=== PATIENT | male | born 1990 | race Caucasian/White ===

== ENCOUNTER 2019-11-20 21:30 | Emergency (ER) | payer MEDICAID, SELFPAY ==
[2019-11-20 21:31] VITALS: BP 142/95; PULSE 97; RESP 20; TEMP 36.3; O2SAT 97; BMI 25.1
--- NOTE | 2019-11-20 21:56 | ED.VIS.GEN ---
History of Present Illness Chief Complaint: Wound Informant: Patient Onset: Today Narrative: Patient here with mother concerns for sore inside left gums this evening. States more swollen earlier actually improving. Concerns for STD secondary to different partner recently. No sore throat no difficulty swallowing. History of seizure disorder, states no recent seizure activities. Prior similar symptoms: No Past Medical History - Allergies and Home Meds Allergies/Adverse Reactions: Allergies SHRIMP Allergy (Uncoded 04/10/16 16:21) Swelling Primary Care Physician: Curly Mtz MD [Primary Care Provider] - Past Medical History: - - Seizures Surgical History: herniorrhaphy Smoking Status: Current every day smoker Review of Systems General: Denies: Chills, Fever, Sweats Eyes: Denies: Visual changes - bilaterally, Diplopia ENT: Denies: Rhinorrhea, Sore throat Cardiovascular: Denies: Chest pain, Palpitations Respiratory: Denies: Dyspnea, Cough, Dyspnea on exertion Gastrointestinal: Denies: Abdominal pain, Nausea, Vomiting, Diarrhea, Melena, Hematochezia Genitourinary: Denies: Dysuria, Hematuria, Frequency Musculoskeletal: Denies: Back pain, Extremity Pain Skin: Denies: Rash, Wounds Neurological: Denies: Headache, Weakness, Numbness Physical Exam Vital Signs/Narrative: Vital Signs Temp Pulse Resp BP Pulse Ox 11/20/19 21:31 97.3 F L 97 20 H 142/95 H 97 General: Well nourished, Well developed, No Acute Distress Head: Normocephalic, Atraumatic Eyes: Perrl, EOMI ENT: Moist mucous membranes, No rhinorrhea, - - Left oral mucosa superiorly very small swelling region less than half centimeter there is no ulcers. Minimal tenderness. No dental tenderness. No sublingual edema. Airway patent. Neck: Supple, Nontender Cardiovascular: Regular rate, Regular rhythm, No murmurs Respiratory: No distress, CTA bilaterally, Chest nontender Abdomen: Soft, Nontender, Nondistended, Normal bowel sounds Back: Nontender, Normal Inspection Extremities: Nontender, No edema Skin: Normal color, No rash Neurological: Alert, Oriented x3, Cranial nerves II-XII grossly intact, Normal Strength, Normal Sensation Psychological: Normal affect, Normal Mood Diagnostic/Tx/Re-eval - Medical Decision Making Exam with small area with swelling minimal tenderness. There is no ulcers lesions concerns for canker sores or any STD concerns. He states is getting better. Discussed with patient I do not have a clear reason for his symptoms. However it is improving he can use Tylenol or Motrin. He is given follow-up with dental for additional oral exam if needed. ED Disposition - Plan for ED Patient: Disposition: Home or Assisted Living Diagnosis: Well adult health check Referrals: Curly Mtz MD [Primary Care Provider] - Additional Instructions: Monitor the symptoms, use Tylenol or Motrin as needed.
== END 2019-11-20 22:06 | disposition home or self-care (01) ==
LOC: ED 22:04
PROVIDERS: Emergency Provider Emergency Medicine; PCP Family Medicine
CPT/HCPCS: 99282

== ENCOUNTER 2019-12-08 22:11 | Emergency (ER) | payer MEDICAID, SELFPAY ==
[2019-12-08 22:12] VITALS: BP 161/111; PULSE 102; RESP 18; TEMP 36.2; O2SAT 100; BMI 26.2
--- NOTE | 2019-12-08 22:20 | ED.DCSUM_ITS ---
History of Present Illness Chief Complaint: Male Pain/Injury Narrative: Patient presents with 2 bumps on his scrotum. He has no penile pain no penile discharge no testicular pain. He has no fever or chills. He has no inguinal pain. Past Medical History - Allergies and Home Meds Allergies/Adverse Reactions: Allergies SHRIMP Allergy (Uncoded 04/10/16 16:21) Swelling Primary Care Physician: Curly Mtz MD [Primary Care Provider] - Past Medical History: None Surgical History: herniorrhaphy Smoking Status: Current every day smoker Review of Systems General: Denies: Fever Cardiovascular: Denies: Chest pain Respiratory: Denies: Dyspnea Gastrointestinal: Denies: Abdominal pain, Nausea Genitourinary: Reports: - - Scrotal lesion as in HPI. Denies: Dysuria, Hematuria Skin: Reports: - - As above Hematologic: Denies: Easy bruising Physical Exam Vital Signs/Narrative: Vital Signs Temp Pulse Resp BP Pulse Ox 12/08/19 22:12 97.2 F L 102 H 18 161/111 H 100 General: Well nourished, Well developed, No Acute Distress Cardiovascular: Regular rate Respiratory: No distress Abdomen: Soft, Nontender, Nondistended : - - Normal external genitalia. There is no penile discharge. There are 2 areas of folliculitis on his scrotum, no obvious fluctuance. No vesicles present. Diagnostic/Tx/Re-eval - Medical Decision Making This time patient does not manifest signs or symptoms of herpes since this is what he is concerned about however had a long discussion with him I warned him that he still could have contracted herpes they just have not manifested yet. Patient denies any discharge, he does not need any GC chlamydia testing he appears well I will discharge him in stable condition. I did educate him about safe sex practices ED Disposition - Plan for ED Patient: Disposition: Psych[facility] Hospital or Unit Diagnosis: Folliculitis Instructions: ED Folliculitis Prescriptions: Cephalexin [Keflex] 500 mg PO Q6 #28 cap Transmission Status: Pending to [id number] Referrals: Curly Mtz MD [Primary Care Provider] -
[2019-12-08 22:35] VITALS: BP 157/105
== END 2019-12-08 22:36 | disposition home or self-care (01) ==
PROVIDERS: Emergency Provider Emergency Medicine; PCP Family Medicine
DX: L73.9 Follicular disorder, unspecified (principal); F17.200 Nicotine dependence, unspecified, uncomplicated
CPT/HCPCS: 99281

== ENCOUNTER 2020-09-19 16:41 | Emergency (ER) | payer MEDICAID, SELFPAY ==
[2020-09-19 16:42] VITALS: BP 142/102; PULSE 88; RESP 16; TEMP 36.6; O2SAT 98; BMI 23.7
--- NOTE | 2020-09-19 16:58 | EDS_ITS ---
HPI History of Present Illness Chief Complaint: Male Pain/Injury Narrative Narrative: Patient presenting with concern for STD. He states he has had 2 sex partners in the last 2 months. The first 1 given trichomonas and he was treated for this. His second partner did not have any symptoms. He did have unprotected sex with her about a month and a half ago. He states he is not really having any drainage that is new but states that since he has had chlamydia earlier this year he has had continued mild drainage without urination. He denies dysuria or hematuria. He denies systemic signs or symptoms. Patient does have some small areas on his penis and testicles which he has questions about. He states that his testicles are nontender. He denies any rashes to the testicles or penis. [facility] Medical History Seizure Home Medications levetiracetam [Keppra] 1,500 mg PO BID 11/27/12 [History Last Taken 11/23/15] divalproex 750 mg PO BIDCM #180 tablet 05/06/13 [Rx Last Taken 11/23/15] Allergy/AdvReac Type Severity Reaction Status Date / Time SHRIMP Allergy Swelling Uncoded 09/19/20 16:41 Social History Smoking Status: Current every day smoker tobacco type: cigarettes ROS ROS ED Constitutional Constitutional ED: Denies chills, fever(s) or sweats Eyes Eyes: Denies blurry vision or change in vision ENT ENT ED: Denies ear pain or sore throat Cardiovascular Cardiovascular: Denies chest pain, palpitations or racing heartbeat Respiratory/Chest Respiratory/Chest: Denies cough, dyspnea or sputum Gastrointestinal Gastrointestinal: Denies abdominal pain, constipation, diarrhea, nausea or vomiting Genitourinary Genitourinary ED: Reports other Details: Bumps on testicles and penis ; Denies d ysuria, hematuria or urinary frequency Musculoskeletal Musculoskeletal: Denies arthralgias, myalgias or neck pain Integumentary Denies abscess, Abrasions or rash Neurologic Neurologic: Denies headache(s), paresthesias or weakness Psychiatric Psychiatric: Denies anxiety, depression, suicidal ideation or suicidal thoughts Endocrine Endocrinology: Denies polydipsia or polyuria EXAM Physical Exam Const Vital Signs: 09/19/20 16:42 Temperature 97.8 F Temperature Source Temporal Pulse Rate 88 Respiratory Rate 16 Blood Pressure 142/102 H Blood Pressure Mean 115 Pulse Ox 98 Oxygen Delivery Method Room Air Positive well nourished and unkempt General Appearance ED: unkempt; Negative for pallor HEENT normocephalic and atraumatic Eyes PERRL and EOMs intact bilaterally Resp normal respiratory effort Effort and Inspection: Negative for retractions Cardio regular rate and regular rhythm Penis: circumcised and papules; Negative for ecchymosis, edematous, erythema, mass, paraphimosis, phimosis, swelling, ulceration or discharge Scrotum: testes descended bilaterally and cremasteric reflex present; Negative for tenderness, erythema, ecchymosis, edematous, scrotal swelling or varicocele Neuro oriented x3 Sensorium / Orientation: alert Psych mental status grossly normal Appearance: unkempt Skin General Skin Exam: Negative for jaundice or pallor MDM MDM MDM Narrative Medical decision making narrative: Patient presenting with concern for STD although he states he had a chronic penile discharge for about 6 months. He has no new change in this. He has 2 unprotected sex partners in the last 2 months. He was recently treated for trichomonas and states that he had unprotected sex after this. This was about 1.5 months ago. He describes no dysuria or hematuria. He does not have testicular pain or penile pain. Patient does have some small white papules at the base of the penis and on the posterior scrotum there does not appear to be any other areas. And he is not connected. He did not appear to be tender. He did not appear to be genital warts and may just be small hair follicles. Patient will be tested for GC gonorrhea. Urinalysis was also sent. Urinalysis negative for infection. GC and gonorrhea are negative. Patient counseled on findings and he was discharged home in stable condition. Impression: 1. Urethritis noninfected Lab Data Labs: Laboratory Results - last 24 hr 09/19/20 09/19/20 17:05 17:05 Urine Color Yellow Urine Clarity Sl. Cloudy Urine pH 6.5 Ur Specific [place] 1.010 Urine Protein Negative Urine Glucose (UA) Normal Urine Ketones Negative Urine Occult Blood Negative Urine Nitrite Negative Urine Bilirubin Negative Urine Urobilinogen Normal Ur Leukocyte Esterase 25 H Urine RBC 0 SEEN Urine WBC 0-5 SEEN Ur Squamous Epith Cells 0-5 SEEN Urine Bacteria 0 SEEN Urine Mucus 0 SEEN Chlam trachomat DNA PCR Negative N.gonorrhoeae DNA (PCR) Negative Discharge Plan Triage Chief Complaint: Male Pain/Injury ED Provider: Anastacio Perry Dx/Rx/DC Orders Prescriptions: No Action levetiracetam [Keppra] 1,000 MG tablet 1,500 mg PO BID RF: 0 divalproex 250 MG tablet 750 mg PO BIDCM Qty: 180 RF: 0 Primary Care Provider: Curly Mtz Referrals: Curly Mtz MD [Primary Care Provider] - Disposition Disposition: Home, Self Care
[2020-09-19 17:12] LABS: Bacteria 0 SEEN /hpf (None Seen); Mucous, Urine 0 SEEN /hpf (<or=2+); Red Blood Cells-Urine 0 SEEN /hpf (0-5)
[2020-09-19 17:14] LABS: Color, Urine Yellow (Yellow); Glucose, Dipstick Normal (Normal); Ketone-Dipstick Negative (Negative); Leukocyte Esterase-Dipstick 25 /ul (Negative); Nitrite-Dipstick Negative (Negative); Occult Blood-Urine Negative /ul (Negative); Protein-Dipstick Negative (Negative); Urine Bilirubin Dipstick Negative (Negative); Urine Clarity Sl. Cloudy (Clear); Urine Urobilinogen Normal (Normal); Urine pH 6.5 (5.0 - 8.0)
[2020-09-19 17:26] LABS: Squamous Epithelial Cells - UA 0-5 SEEN /hpf (0-5)
[2020-09-19 17:27] LABS: White Blood Cells 0-5 SEEN /hpf (0-5)
[2020-09-19 19:27] LABS: Chlamydia Trachomatis by PCR Negative (Negative); Neisserai gonorrhoeae by PCR Negative (Negative); Probe Check PASS; Sample Adequacy Control PASS; Specimen Processing Control PASS
[2020-09-19 19:46] VITALS: BP 142/102; PULSE 88; RESP 16; O2SAT 98
== END 2020-09-19 19:45 | disposition home or self-care (01) ==
PROVIDERS: Emergency Provider Student in an Organized Health Care Education/Training Program; PCP Family Medicine
DX: N34.2 Other urethritis (principal); F17.210 Nicotine dependence, cigarettes, uncomplicated
CPT/HCPCS: 81001; 87491; 87591; 99282

== ENCOUNTER 2024-12-09 14:07 | Emergency (ER) | payer MEDICAID, SELFPAY ==
[2024-12-09 14:07] VITALS: BP 156/104; PULSE 93; RESP 16; TEMP 36.4; O2SAT 97; BMI 26.2
--- NOTE | 2024-12-09 14:35 | ED.RN ---
Patient's name called x2 by [employer]. Patient not in waiting room when this RN called name.
== END 2024-12-09 14:35 | disposition left against medical advice (07) ==
LOC: ED 14:55
PROVIDERS: PCP Family Medicine
DX: Z53.21 Procedure and treatment not carried out due to patient leaving prior to being seen by health care provider (principal)

== ENCOUNTER 2024-12-09 22:56 | Emergency (ER) | payer MEDICAID, SELFPAY ==
[2024-12-09 22:56] VITALS: BP 156/100; PULSE 110; RESP 19; TEMP 36.7; O2SAT 100; BMI 26.4
--- NOTE | 2024-12-09 23:27 | RAD_ITS ---
PROCEDURE: RIGHT KNEE 4 OR MORE VIEWS 12/09/2024 REASON FOR EXAM: PAIN TECHNIQUE: Procedure Code: RADKN Modality: DX Procedure: KNEE 4 OR MORE VIEWS Laterality: Right COMPARISON: None. FINDINGS: No acute fracture or dislocation. Alignment is anatomic. Preserved joint spaces. No aggressive osseous lesion. Prominent focal soft tissue swelling of the infrapatellar overlying the patellar tendon at the tibial tuberosity insertion. No unusual mineralization. No joint effusion. RAD/Knee 4 or More Views IMPRESSION: No acute fracture or dislocation. Localized soft tissue swelling in the infrap atellar soft tissues overlying the patellar tendon at the tibial tubercle insertion; nonspecific. Reading Location: [id number]
[2024-12-09] MEDS: Vancomycin HCl 1,250 MG in 0.9% Normal Saline (250mL Bag) 250 ML 167 MG IV (23:31)
[2024-12-09 23:32] LABS: Hematocrit 47.5 % (40-54); Hemoglobin 15.9 g/dL (13.0-16.5); Immature Granulocytes Count 0.070 X10^3/uL (0.0-0.0); Mean Corp Hgb Conc 33.5 g/dL (32-36); Mean Corpuscular Volume 98.5 fL (80-94); Mean Platelet Vol. 10.4 fl (6.2-12.0); NRBC Flagged by Analyzer 0 % (0-5); POSITIVE DIFFERENTIAL YES; Platelet Count 358 K/mm3 (150-450); RBC Distribution Width CV 12.0 % (11.6-14.6); RBC Distribution Width SD 43.9 fl (35.1-43.9); Red Blood Count 4.82 M/mm3 (4.6-6.2); White Blood Count 13.4 K/mm3 (4.4-11.0)
--- OUTSIDE RECORDS SUMMARY | 2024-12-09 23:49 | XMS RPT_ITS | CCD ---
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.Marcie DUMONT Unavailable CINTIA SINGH Attending Unavailable THEO REYNA Attending Unavailable THEO REYNA Referring Unavailable IRON MTZ Primary Care Unavailab IRON Escamilla Primary Care Unavailab [place] Allergies Allergy Classification Reported Allergen(s) Allergy Type Date of Onset Reaction(s) Facility (10 sources) Shellfish; Translations: [SHELLFISH DERIVED] Drug Allergy 5 Swelling [facility] Work Phone: (10 sources) traZODone; Translations: [TRAZODONE] Drug Allergy 5 Intolerance, Other: See Comments [facility] Work Phone: (1 source) Shrimp product Drug allergy (disorder) 2 [facility] Repository Medications Current Medications Medication Drug Class(es) Dates Sig (Normalized) Sig (Original) acetaminophen 325 mg oral tablet (1 source) Start: 11-24-2023 End: 12-09-2023 take 2 tablets by mouth every six hours as needed for pain acetaminophen (TYLENOL) 325 mg tablet Indications: Pain, dental Take 2 tablets by mouth every 6 hours as needed for pain for up to 15 days. 120 tablet 11/24/2023 12/09/2023 Active amoxicillin 875 mg / clavulanate 125 mg oral tablet (4 sources) Penicillin-class Antibacterial Start: 11-22-2023 take 1 tablet by mouth twice daily amoxicillin-clavul anate potassium (AUGMENTIN) 875-125 mg per tablet TAKE 1 TABLET BY MOUTH TWICE DAILY UNTIL GONE 11/22/2023 Active cholecalciferol 1.25 mg oral capsule (9 sources) Vitamin D Start: 02-27-2019 take 1 capsule by mouth every week cholecalciferol, Vitamin D3, (VITAMIN D3) 1,250 mcg (50,000 unit) cap capsule Indications: Vitamin D deficiency Take 1 capsule by mouth one time a week. 12 capsule 02/27/2019 Active Comment on above: Take 1 capsule by mo ut one time a week. ibuprofen 600 mg oral tablet (1 source) Nonsteroidal Anti-inflammatory Drug Start: 11-24-2023 End: 12-09-2023 take 1 tablet by mouth every six hours as needed for pain ibuprofen (MOTRIN) 600 mg tablet Indications: Pain, dental Take 1 tablet by mouth every 6 hours as needed for pain for up to 15 days. 60 tablet 11/24/2023 12/09/2023 Active levETIRAcetam 750 mg oral tablet (11 sources) Start: 11-18-2022 End: 09-04-2024 take 2 tablets by mouth twice daily levETIRAcetam (KEPPRA) 750 mg tablet Indications: Seizure disorder (HCC) Take 2 tablets by mouth two times a day. 360 tablet 1 03/08/2024 09/04/2024 Active Start: 08-05-2021 End: 03-23-2022 take 2 tablets by mouth twice daily levETIRAcetam (KEPPRA) 750 mg tablet Indications: Seizure disorder (HCC) Take 2 tablets by mouth twice daily. 360 tablet 0 12/23/2021 Active Comment on above: Take 2 tablets by mo ut twice daily Take 2 tablets by mo uth twice daily. divalproex sodium 250 mg delayed release oral tablet (9 sources) Mood Stabilizer, Anti-epileptic Agent Start: 11-18-2022 End: 09-04-2024 take 3 tablets by mouth twice daily divalproex DR (DEPAKOTE) 250 mg EC tablet Indications: Seizure disorder (HCC) Take 3 tablets by mouth two times a day. 540 tablet 1 03/08/2024 09/04/2024 Active Start: 12-11-2020 End: 04-26-2022 take 3 tablets by mouth twice daily divalproex DR (DEPAKOTE) 250 mg EC tablet Indications: Seizure disorder (HCC) Take 3 tablets by mouth twice daily. 540 tablet 0 01/26/2022 04/26/2022 Active Comment on above: Take 3 tablets by mo uth twice daily. TAKE 3 TABLETS BY MO UTH TWICE DAILY Problems Active Problems Problem Classification Problem Date Documented Da te Episodic/Chronic Anxiety disorders (9 sources) Anxiety; Translations: [Anxiety disorder, unspecified] Onset: 06-04-2014 06-04-2014 Chronic Disorders of teeth and jaw (1 source) Toothache; Translations: [Other specified disorders of teeth and supporting structures] 11-24-2023 Episodic Epilepsy; convulsions (13 sources) Seizure disorder; Translations: [Epilepsy, unspecified, not intractable, without status epilepticus] Onset: 06-04-2014 Chronic Genitourinary symptoms and ill-defined conditions (1 source) Other abnormal findings in urine; Translations: [Dark urine] Onset: 07-02-2024 Episodic Mood disorders (9 sources) Recurrent major depression; Translations: [Major depressive disorder, recurrent, unspecified] Onset: 06-22-2016 06-22-2016 Chronic Other aftercare (1 source) Patient encounter status; Translations: [Encounter for therapeutic drug level monitoring] 03-08-2024 Episodic Other male genital disorders (1 source) Other specified disorders of the male genital organs; Translations: [Lump in scrotum] Onset: 07-02-2024 Episodic Urinary tract infections (2 sources) Other urethritis; Translations: [Urinary tract infection, site not specified] Onset: 12-15-2021 Episodic Past or Other Problems Problem Classification Problem Date Documented Da te Episodic/Chronic Hemorrhoids (9 sources) Internal hemorrhoids; Translations: [Other hemorrhoids] Onset: 03-24-2012 03-24-2012 Episodic Residual codes; unclassified (9 sources) Insomnia; Translations: [Insomnia, unspecified] Onset: 08-04-2014 08-04-2014 Episodic Results Test Name Value Interpretation Reference Range Facil ity Bacteria Ur Culton Bacteria identified Cx Nom (U) CULTURE, URINE: No growth (<1,000 CFU/ml) Normal [facility] Comment on above: Performed By: #### 6 30-4 #### [facility] CLIA [id number] [address] [place] [address] C. trachomatis+N. gonorrhoea e DNA NIRU+probe Ql (Unsp spec)on 07-02-2024 C. trachomatis rRNA NIRU+probe Ql (Unsp spec) Not detected Normal Not detected [facility] Comment on above: Order Comment: Speci men Type: URINE SPECIMEN Ordering Facility: [facility] Address: [address] [place] [address] Performed By: #### 3 6902-5 #### [facility] CLIA [id number] [address] [place] [address] N. gonorrhoeae rRNA NIRU+probe Ql (Unsp spec) Not detected Normal Not detected [facility] Comment on above: Order Comment: Speci men Type: URINE SPECIMEN Ordering Facility: [facility] Address: [address] [place] [address] Performed By: #### 3 6902-5 #### [facility] CLIA [id number] [address] [place] [address] OF [facility] CNOVon 07-02-2024 CNOV Office Visit ([facility] ) HARPREET CHRISTIANSON ([id number]) 1990 M Date Time Provider Department 07/02/24 1:30 PM [facility]INTIA SINGH [facility] During your visit today, we recorded the following information about you: Temperature Pulse Respiration Blood pressure 97.6 degrees 91/minute 16/minute 132/82 Weight 89.4 kg Cintia Singh APRN.TIM 07/02/2024 2:12 PM Signed [facility] Subjective Harpreet Christianson is a 34 year old male. Patient presents with: lump on left testicle: Found it 4 days ago HPI Left Testicular Lump: - Noticed a lump on the left testicle. - Mild pain when the lump is bumped or pressed. - Occasional tingling sensation in the testicles. - Denies pain with urination, burning, or frequency. - Sexually active; recent history of multiple partners. - Denies any known STDs in partners. Review of Systems Constitutional: Negative for chills and fever. Genitourinary: Positive for scrotal swelling and testicular pain. Negative for decreased urine volume, difficulty urinating, dysuria, enuresis, flank pain, frequency, genital sores, hematuria, penile discharge, penile pain, penile swelling and urgency. Skin: Negative for color change and rash. Objective BP 132/82 Pulse 91 Temp 36.4 ?C (97.6 ?F) (Tympanic) Resp 16 Wt 89.4 kg (197 lb 1.5 oz) SpO2 99% BMI 28.28 kg/m? PAST MEDICAL HISTORY Diagnosis Date - Anxiety - Seizure (HCC) PAST SURGICAL HISTORY Procedure Laterality Date - EXTRACTION, ERUPTED TOOTH OR EXPOSED ROOT (ELEVATION AND/OR FORCEPS REMOVAL) - PAST SURGICAL HISTORY OF 1995 hernia repair ALLERGIES Shellfish Derived and Trazodone MEDICATIONS - divalproex DR (DEPAKOTE) 250 mg EC tablet Take 3 tablets by mouth two times a day. - levETIRAcetam (KEPPRA) 750 mg tablet Take 2 tablets by mouth two times a day. - nitrofurantoin monohydrate and macrocrystal (MACROBID) 100 mg capsule Take 1 capsule by mouth two times a day for 5 days. - amoxicillin-clavulanat e potassium (AUGMENTIN) 875-125 mg per tablet TAKE 1 TABLET BY MOUTH TWICE DAILY UNTIL GONE (Patient not taking: Reported on 07/02/2024) - cholecalciferol, Vitamin D3, (VITAMIN D3) 1,250 mcg (50,000 unit) cap capsule Take 1 capsule by mouth one time a week. (Patient not taking: Reported on 11/24/2023) FAMILY HISTORY Problem Relation Age of Onset - Hypertension Mother - Hypertension Father - other (kidney failure) Father - Diabetes Maternal Grandfather - Ischemic Heart Disease Maternal Grandfather - Cancer Maternal Grandmother - Ovarian cancer Maternal Grandmother - Cancer Paternal Grandfather - No Known Problems Paternal Grandmother - No Known Problems Half-brother - No Known Problems Half-brother Social History Tobacco Use - Smoking status: Every Day Current packs/day: 1.00 Average packs/day: 1 pack/day for 7.0 years (7.0 ttl pk-yrs) Types: Cigarettes - Smokeless tobacco: Never Vaping Use - Vaping status: Never Used Substance Use Topics - Alcohol use: Yes Alcohol/week: 4.0 standard drinks of alcohol Types: 4 Cans of Beer (12oz) per week Comment: 4 tall boy beers a night. - Drug use: No Comment: No drugs now marijuana in the past. Physical Exam Vitals and nursing note reviewed. Exam conducted with a lime supervisor present. Constitutional: General: He is not in acute distress. Appearance: Normal appearance. He is not ill-appearing. Genitourinary: Pubic Area: No rash. Testes: Left: Mass present. Tenderness not present. Neurological: Mental Status: He is alert. {1. Lump in scrotum (N50.89) - Palpable mass adjacent the left testicle, non-tender on examination. - Differential diagnosis includes lymphadenopathy. - Ordered scrotal ultrasound to evaluate the nature of the mass (e.g., fluid, cyst). - Educated patient on the function of lymph nodes and potential causes of swelling, including infections. - Discussed the possibility of sexually transmitted infections (STIs) contributing to lymph node swelling. - Ordered urine test for gonorrhea and chlamydia and trichomonas; results expected within one day. - Patient understands and agrees with the plan. 2. Dark urine (R82.998) 3. Urinary tract infection without hematuria, site unspecified (N39.0) - Urine test indicates signs of a urinary tract infection (UTI). Urine culture sent to lab. - Initiated antibiotic therapy; prescription sent to patient's pharmacy at [facility]. - Advised patient on the importance of adequate hydration to prevent UTIs. Office Visit on 07/02/2024 Component Date Value Ref Range Status - GLUCOSE UA (POCT) 07/02/2024 Negative Negative mg/dL Final - BILIRUBIN UA (POCT) 07/02/2024 Small (A) Negative Final - KETONE UA (POCT) 07/02/2024 Trace Negative mg/dL Final - SPECIFIC GRAVITY UA (POCT) 07/02/2024 1.020 1.005 - 1.030 Final - HEMOGLOBIN/BLOOD UA (POCT) (more content not included)... Normal [facility] TRICHOMONAS VAGINALIS NAATon 07-02-2024 T. vaginalis DNA NIRU+probe Ql (Unsp spec) Not detected Normal Not detected [facility] Comment on above: Order Comment: Speci men Type: URINE SPECIMEN Ordering Facility: [facility] Address: [address] [place] [address] Performed By: #### T RVAMP #### [facility] CLIA [id number] [address] [place] [address] OF [facility] CNPLucy 03-09-2024 CNPN Telephone ([facility]) HARPREET CHRISTIANSON ([id number]) 1990 M Date Time Provider Department 03/09/24 THEO REYNA [facility] During your visit today, we recorded the following information about you: Sondra Atkinson 03/09/2024 9:17 AM Signed 1st attempt to reach Harpreet about his six month follow up. I have scheduled him and sent a ActualMeds message with information if he needs a different date and time. Sondra Vargas 03/10/2024 7:45 AM Signed Rubin has received and read both ActualMeds messages with scheduling information. Sondra Atkinson Allergies As of Date: 03/09/2024 Noted Allergy Reaction SHELLFISH DERIVED 05/20/2014 7 - Swelling TRAZODONE 09/09/2014 5 - Intolerance 14 - Other: See Comments Comments: made him feel wierd Date Reviewed: 11/24/2023 Reviewed by: Samira Hauser MA - Fully Assessed Reason for Visit: Appointment [186] Prescriptions as of 03/10/2024 - divalproex DR (DEPAKOTE) 250 mg EC tablet Take 3 tablets by mouth two times a day. - levETIRAcetam (KEPPRA) 750 mg tablet Take 2 tablets by mouth two times a day. - amoxicillin-clavulanat e potassium (AUGMENTIN) 875-125 mg per tablet TAKE 1 TABLET BY MOUTH TWICE DAILY UNTIL GONE - cholecalciferol, Vitamin D3, (VITAMIN D3) 1,250 mcg (50,000 unit) cap capsule Take 1 capsule by mouth one time a week. Problem List As Of Date 03/09/2024 Noted Resolved Internal hemorrhoids without mention of complic*03/24/2012 Seizure disorder (HCC) [G40.909] 06/04/2014 Anxiety [F41.9] 06/04/2014 Insomnia [G47.00] 08/04/2014 Major depression, recurrent, chronic (HCC) [F33*06/22/2016 Encounter Status:Closed by SONDRA ATKINSON [facility] ([facility]) HARPREET CHRISTIANSON ([id number]) 1990 M Date Time Provider Department 01/08/24 THEO REYNA [facility] During your visit today, we recorded the following information about you: Latonia Merida 01/08/2024 2:16 PM Signed Patients mother called requesting a refill of the patients Keppra and Depakote. Please send to the [facility] pharmacy in [place]. Harpreet De Jesus 01/08/2024 7:[address] Reyna, please advise. Pt was last seen on 11/18/2022, but then had a No Show on 05/08/23 and then canceled his 05/22/23 apt. Theo Reyna MD 01/09/2024 11:57 AM Signed We went through this with him before his prior appointments. - Seen 05/2019 - 4 no shows then seen 11/2020 - 3 no shows and 1 cancellation then seen 11/2022. Refilled meds multiple times in intervening time to try to get him to an appointment that was then missed. Is there someone we can forward the chart to in order to send a certified letter that patient needs to be seen for appointments, ombudsman or patrol community service officer or something? I can give him a refill to get him to an appointment now, but I don't want to get into the cycle again of refilling to appointments he doesn't come to. Veronica Cespedes 01/09/2024 12:58 PM Signed Mother called back inquiring about the refills. I relayed Dr. Pavon message letting her know that a refill can be sent in to get him through his next appt but that it would be the last time due to his amount of cancellations and no shows. She conveyed understanding and he now has an appt. She is wondering if it can be done virtually or not. Please call Hanna at [phone] to let her know if the appt on Feb 27 can be virtual or does it have to be in person. Please advise Sondra Atkinson 01/10/2024 1:53 PM Signed Hanna called again, and asked if Harpreet could be seen virtually for his February appointment or if it must be in person. She also asked if his prescription refill that will last until his February appointment is going to be called in? She is concerned about this. She said they use [facility] pharmacy in [place]. Could someone advise her about the medication refill request? Clerical team can assist in adjusting appointment to virtual if this is agreeable with Dr. Reyna. Theo Anton MD 01/10/2024 2:44 PM Signed I sent 90 days to the pharmacy. I'm a little worried about the visit being virtual only because it adds another possible roadblock to the visit being successfully completed, but in theory there's no reason the visit has to be in person medically. If they are very comfortable with using zoom / doing virtuals then should be fine. I'm not sure if the chart got forwarded to someone to look at for sending a certified letter or what would need to be done before their visit so that we don't get into the cycle of not coming to visits and needing refills? I think that's still important to be done. Thanks Theo Reyna MD 01/10/2024 2:44 PM Signed Addended by: THEO REYNA on: 01/10/2024 02:44 PM Modules accepted: Tara Mccabe RN 01/10/2024 3:57 PM Addendum Placed call to patient's mother Hanna at [phone]. Notified her that refills were sent. Updated her phone number in the EMR to this number, as she confirmed her number had changed. She said that the patient does not have a phone number. Patient has not logged into ActualMeds since April 2022. His mother asked for a walkthrough to reset a password on his account and help her with the rosa they need to log in. Her questions were answered in a general sense but could not help with access issues for this patient account because she does not have proxy access and the patient would need to do that. Reiterated Dr. Reyna's message that unless the patient is very comfortable with logging in and utilizing the rosa then he should be seen in person and not virtually. She voiced understanding and said she would help the patient with resetting his password to log in but that I know Harpreet wanted a virtual visit. Confirmed patient's home address Harpreet Christianson [id number] [facility] [address] A request was sent for certified letter labels and a supply of those should be received by the office by the end of this week. Tara Coto RN 01/19/2024 9:36 AM Signed Letter written and placed in Theo Reyna MD inbox to review. Allergies As of Date: 01/08/2024 Noted Allergy Reaction SHELLFISH DERIVED 05/20/2014 7 - Swelling TRAZODONE 09/09/2014 5 - Intolerance 14 - Other: See Comments Comments: made him feel wierd Date Reviewed: 11/24/2023 Reviewed by: Samira Hauser MA - Fully Assessed Visit Diagnosis:Seizure disorder (HCC) [G40.909] Order(s):divalproex DR (DEPAKOTE) 250 mg EC tabletTake 3 tablets by mouth two times a day.Disp: 540 tabletRfl: 0 levETIRAcetam (KEPP (more content not included)... Normal [facility] CNOVon 11-24-2023 CNOV Office Visit ([facility]STR ) HARPREET CHRISTIANSON ([id number]) 1990 M Date Time Provider Department 11/24/23 7:45 AM PATEL HERNANDEZ [facility] During your visit today, we recorded the following information about you: Temperature Pulse Respiration Blood pressure 98.8 degrees 97/minute 18/minute 146/91 Weight 99.9 kg Patel Hernandez MD 11/24/2023 8:16 AM Signed Patient presents with: Dental Problem: L side tooth infection x1 month, currently on augmentin HPI: Dental pain: Duration: 1 month, went to dentist 2 days ago and felt better after starting antibiotic but feeling bad again over night Location: left upper molar, general headache Character: aching and throbbing Relieving: unable to sleep last night Pain relievers: had used ibuprofen but not currently, using salt water gargle for sore throat Associated: chills, nausea, sore throat, headache Pertinent negatives: Denies purulent drainage, cough, nasal congestion, rhinorrhea, vomiting, diarrhea MEDICATIONS: amoxicillin-clavulanat e potassium (AUGMENTIN) 875-125 mg per tablet TAKE 1 TABLET BY MOUTH TWICE DAILY UNTIL GONE divalproex DR (DEPAKOTE) 250 mg EC tablet Take 3 tablets by mouth two times a day. levETIRAcetam (KEPPRA) 750 mg tablet Take 2 tablets by mouth two times a day. cholecalciferol, Vitamin D3, (VITAMIN D3) 1,250 mcg (50,000 unit) cap capsule Take 1 capsule by mouth one time a week. (Patient not taking: Reported on 11/24/2023) ALLERGIES: ALLERGIES Allergen Reactions Shellfish Derived Swelling Trazodone Intolerance, Other: See Comments made him feel wierd VITALS: BP 146/91 Pulse 97 Temp 37.1 ?C (98.8 ?F) Resp 18 Wt 99.9 kg (220 lb 3.8 oz) SpO2 98% BMI 31.60 kg/m? PE: Gen: Mildly ill-appearing, holding left jaw and uncomfortable Eyes: PERRL, EOMI, sclera clear Ears: Canals clear. TMs without erythema, bulge, or effusion Sinuses: non-tender frontal, non-tender maxillary Mouth/throat: MMM, mild pharyngeal erythema without exudate, small right tonsil stone. Left upper 2nd molar 1/3 missing, 3rd molar absent Neck: Supple, no thyromegaly, nontender, no lymphadenopathy Heart: regular rate and rhythm, no murmurs Lungs: clear to auscultation ASSESSMENT/PLAN: 1. Pain, dental - ICD9: 525.9, ICD10: K08.89 Continue augmentin. Resume analgesia. Scheduled combination ibuprofen and acetaminophen every 6 hours at least 3 times a day. - IBUPROFEN 600 MG TABLET - ACETAMINOPHEN 325 MG TABLET Sore throat and headache may be related to acute viral illness. Streptococcal pharyngitis ruled out by present Augmentin use. Patel Hernandez MD Allergies As of Date: 11/24/2023 Noted Allergy Reaction SHELLFISH DERIVED 05/20/2014 7 - Swelling TRAZODONE 09/09/2014 5 - Intolerance 14 - Other: See Comments Comments: made him feel wierd Date Reviewed: 11/24/2023 Reviewed by: Samira Hauser MA - Fully Assessed Reason for Visit: Dental Problem [31] Cmt: L side tooth infection x1 month, currently on augmentin Primary Visit Diagnosis:Pain, dental [K08.89] Order(s):ibuprofen (MOTRIN) 600 mg tabletTake 1 tablet by mouth every 6 hours as needed for pain for up to 15 days.Disp: 60 tabletRfl: 0 acetaminophen (TYLENOL) 325 mg tabletTake 2 tablets by mouth every 6 hours as needed for pain for up to 15 days.Disp: 120 tabletRfl: 0 Prescriptions as of 11/24/2023 - amoxicillin-clavulanat e potassium (AUGMENTIN) 875-125 mg per tablet TAKE 1 TABLET BY MOUTH TWICE DAILY UNTIL GONE - ibuprofen (MOTRIN) 600 mg tablet Take 1 tablet by mouth every 6 hours as needed for pain for up to 15 days. - acetaminophen (TYLENOL) 325 mg tablet Take 2 tablets by mouth every 6 hours as needed for pain for up to 15 days. - divalproex DR (DEPAKOTE) 250 mg EC tablet Take 3 tablets by mouth two times a day. - levETIRAcetam (KEPPRA) 750 mg tablet Take 2 tablets by mouth two times a day. - cholecalciferol, Vitamin D3, (VITAMIN D3) 1,250 mcg (50,000 unit) cap capsule Take 1 capsule by mouth one time a week. Problem List As Of Date 11/24/2023 Noted Resolved Internal hemorrhoids without mention of complic*03/24/2012 Seizure disorder (HCC) [G40.909] 06/04/2014 Anxiety [F41.9] 06/04/2014 Insomnia [G47.00] 08/04/2014 Major depression, recurrent, chronic (HCC) [F33*06/22/2016 Prescriptions ordered this encounter Disp Refills Start End IBUPROFEN 600 MG TABLET 60 t* 0 11/24/2023 12/09/2023 Route: ORAL Sig: Take 1 tablet by mouth every 6 hours as needed for pain for up to 15 days. ACETAMINOPHEN 325 MG TABLET 120 * 0 11/24/2023 12/09/2023 Route: ORAL Sig: Take 2 tablets by mouth every 6 hours as needed for pain for up to 15 days. Level of Service: OFFICE/OUTPATIENT ESTABLISHED MOD [facility] 30 MIN [04026] Encounter Status:Closed by PATEL HERNANDEZ on 11/24/23 [facility] OBSOLETEon 12-09-2020 OBSOLETE Refill (TRACIE) HARPREET CHRISTIANSON ([id number]) 1990 M Date Time Provider Department 12/09/20 THEO REYNA During your visit today, we recorded the following information about you: Oscar lEliott LPN 12/10/2020 10:13 AM Signed Refills can be given by provider at appointment if approved. Oscar Elliott LPN Allergies As of Date: 12/09/2020 Noted Allergy Reaction SHELLFISH DERIVED 05/20/2014 7 - Swelling TRAZODONE 09/09/2014 5 - Intolerance 14 - Other: See Comments Comments: made him feel wierd Date Reviewed: 12/26/2019 Reviewed by: Sully Feliz Ma - Fully Assessed Reason for Visit: Refill Request [94] Refill Request [94] Visit Diagnosis:Seizure disorder (HCC) [G40.909] Prescriptions as of 12/10/2020 - levETIRAcetam (KEPPRA) 750 mg tablet Take 2 tablets by mouth twice daily for 14 days. - divalproex DR (DEPAKOTE) 250 mg EC tablet Take 3 tablets by mouth twice daily for 14 days. - cholecalciferol, Vitamin D3, (VITAMIN D3) 1,250 mcg (50,000 unit) cap capsule Take 1 capsule by mouth one time a week. Problem List As Of Date 12/09/2020 Noted Resolved Internal hemorrhoids without mention of complic*03/24/2012 Seizure disorder (HCC) [G40.909] 06/04/2014 Anxiety [F41.9] 06/04/2014 Insomnia [G47.00] 08/04/2014 Major depression, recurrent, chronic (HCC) [F33*06/22/2016 Encounter Status:Closed by OSCAR ELLIOTT LPN on 12/10/20 [facility] OBSOLETEon 11-16-2020 OBSOLETE Refill (TRACIE) HARPREET CHRISTIANSON ([id number]) 1990 M Date Time Provider Department 11/16/20 THEO REYNA During your visit today, we recorded the following information about you: Margie Mercado 11/17/2020 11:13 AM Signed Patient overdue for an appointment. No showed last appointment. Per Dr. Reyna's last phone message, further refills will be give at appointment. Please schedule. Margie Gary 11/18/2020 1:53 PM Signed Patient's mother calling to check the status of medication. She states that she has made an appointment for patient (November 27 at 11) And is requesting medication refill Theo Reyna MD 11/18/2020 5:13 PM Signed The last time he needed refills he was given a script to get him to his appointment on 08/28 which he didn't come to. I'll send in 2 week Rx to get him to this upcoming appointment but please emphasize I can't prescribe beyond this if not seen as not safe to do so, last seen 1.5 years ago and typically do not prescribe beyond 1 year without being seen. Allergies As of Date: 11/16/2020 Noted Allergy Reaction SHELLFISH DERIVED 05/20/2014 7 - Swelling TRAZODONE 09/09/2014 5 - Intolerance 14 - Other: See Comments Comments: made him feel wierd Date Reviewed: 12/26/2019 Reviewed by: Sully Feilz Ma - Fully Assessed Reason for Visit: Refill Request [94] Visit Diagnosis:Seizure disorder (HCC) [G40.909] Order(s):levETIRAcetam (KEPPRA) 750 mg tabletTake 2 tablets by mouth twice daily for 14 days.Disp: 56 tabletRfl: [address] (DEPAKOTE) 250 mg EC tabletTake 3 tablets by mouth twice daily for 14 days.Disp: 84 tabletRfl: 0 Prescriptions as of 11/18/2020 - levETIRAcetam (KEPPRA) 750 mg tablet Take 2 tablets by mouth twice daily for 14 days. - divalproex DR (DEPAKOTE) 250 mg EC tablet Take 3 tablets by mouth twice daily for 14 days. - cholecalciferol, Vitamin D3, (VITAMIN D3) 1,250 mcg (50,000 unit) cap capsule Take 1 capsule by mouth one time a week. Problem List As Of Date 11/16/2020 Noted Resolved Internal hemorrhoids without mention of complic*03/24/2012 Seizure disorder (HCC) [G40.909] 06/04/2014 Anxiety [F41.9] 06/04/2014 Insomnia [G47.00] 08/04/2014 Major depression, recurrent, chronic (HCC) [F33*06/22/2016 Prescriptions ordered this encounter Disp Refills Start End LEVETIRACETAM 750 MG TABLET 56 t* 0 11/18/2020 12/02/2020 Route: ORAL Sig: Take 2 tablets by mouth twice daily for 14 days. DIVALPROEX 250 MG TABLET,DELAYED REL* 84 t* 0 11/18/2020 12/02/2020 Route: ORAL Sig: Take 3 tablets by mouth twice daily for 14 days. Medications Discontinued During This Encounter Prescriptions - divalproex DR (DEPAKOTE) 250 mg EC tablet (Discontinued) Take 3 tablets by mouth twice daily. - levETIRAcetam (KEPPRA) 750 mg tablet (Discontinued) Take 2 tablets by mouth twice daily. Encounter Status:Closed by THEO REYNA on 11/18/20 [facility] CNCDarshan 08-28-2020 CNCO Letter Text [facility] CNPLucy 08-28-2020 [facility] Telephone (ANAAGAK) HARPREET CHRISTIANSON ([id number]) 1990 M Date Time Provider Department 08/28/20 THEO REYNA During your visit today, we recorded the following information about you: Enriqueta Marroquintower 08/28/2020 4:23 PM Signed No Show Documentation Harpreet Christianson no showed for an appointment on 08/28/20 with Theo Reyna MD at 3:30. He was scheduled for follow up, epilepsy. I called and spoke with the patient regarding his missed appointment. Harpreet stated the reason that he missed his appointment was because Called patient, someone picked up phone and never said anything. Resources discussed/offered to patient: No No show determined to be fault of patient: Yes This is the patients second no show in the last 12 months. Patient was rescheduled for No. Letter mailed : Yes Is this the Third or Fourth No Show? Jody Brown August 28, 2020 4:22 PM Allergies As of Date: 08/28/2020 Noted Allergy Reaction SHELLFISH DERIVED 05/20/2014 7 - Swelling TRAZODONE 09/09/2014 5 - Intolerance 14 - Other: See Comments Comments: made him feel wierd Date Reviewed: 12/26/2019 Reviewed by: Sully Feliz Ma - Fully Assessed Reason for Visit: Missed Appointment [1304] Prescriptions as of 08/28/2020 - divalproex DR (DEPAKOTE) 250 mg EC tablet Take 3 tablets by mouth twice daily. - levETIRAcetam (KEPPRA) 750 mg tablet Take 2 tablets by mouth twice daily. - cholecalciferol, Vitamin D3, (VITAMIN D3) 1,250 mcg (50,000 unit) cap capsule Take 1 capsule by mouth one time a week. Problem List As Of Date 08/28/2020 Noted Resolved Internal hemorrhoids without mention of complic*03/24/2012 Seizure disorder (HCC) [G40.909] 06/04/2014 Anxiety [F41.9] 06/04/2014 Insomnia [G47.00] 08/04/2014 Major depression, recurrent, chronic (HCC) [F33*06/22/2016 Encounter Status:Closed by ENRIQUETA BROWN on 08/28/20 [facility] CNCOon 06-30-2020 CNCO Letter Text [facility] OBSOLETEon 06-30-2020 OBSOLETE Refill (NEAGAK) HARPREET CHRISTIANSON ([id number]) 1990 M Date Time Provider Department 06/30/20 THEO REYNA During your visit today, we recorded the following information about you: Allergies As of Date: 06/30/2020 Noted Allergy Reaction SHELLFISH DERIVED 05/20/2014 7 - Swelling TRAZODONE 09/09/2014 5 - Intolerance 14 - Other: See Comments Comments: made him feel wierd Date Reviewed: 12/26/2019 Reviewed by: Sully Feliz Ma - Fully Assessed Reason for Visit: Refill Request [94] Visit Diagnosis:Seizure disorder (HCC) [G40.909] Prescriptions as of 06/30/2020 Sig: LEVETIRACETAM 750 MG TABLET Take 2 tablets by mouth twice* DIVALPROEX 250 MG TABLET,CELSO* TAKE 3 TABLETS BY MOUTH TWICE* CHOLECALCIFEROL (VITAMIN D3) * Take 1 capsule by mouth one t* Problem List As Of Date 06/30/2020 Noted Resolved Internal hemorrhoids without mention of complic*03/24/2012 Seizure disorder (HCC) [G40.909] 06/04/2014 Anxiety [F41.9] 06/04/2014 Insomnia [G47.00] 08/04/2014 Major depression, recurrent, chronic (HCC) [F33*06/22/2016 Encounter Status:Closed by MELODY GRIDER on 06/30/20 [facility] OBSOLETEon 06-27-2020 OBSOLETE Refill (NEAGAK) HARPREET CHRISTIANSON ([id number]) 1990 M Date Time Provider Department 06/27/20 THEO REYNA During your visit today, we recorded the following information about you: Marsha Bowser MA 06/29/2020 7:54 AM Signed Pharmacy faxed requesting the following refill Refill(s) Requested: Pending Prescriptions Disp Refills DIVALPROEX 250 MG TABLET,DELAYED RELEASE 180 tablet 0 Sig: TAKE 3 TABLETS BY MOUTH TWICE DAILY TIMMY: Yes ALLERGIES Allergen Reactions - Shellfish Derived Swelling - Trazodone Intolerance, Other: See Comments made him feel wierd (home) [phone] (cell) Last Office Visit Date: Visit date not found Last Distance Health Visit: Visit date not found Future Appointment: Visit date not found The patients preferred pharmacy has been captured for this encounter? yes Request is for script(s) to be escript to pharmacy. JAREK Anderson MD 06/29/2020 11:52 AM Signed With last several refills have been trying to get a hold of him to be seen for future refills. I'm going to decline it and hope he reaches out to make an appointment. Its not safe to go this long without being seen. Paige Garza MA 06/30/2020 1:35 PM Signed June 30, 2020 1:35 PM Patient phone number out of service. No other contact number available. JAREK Hope MA 06/30/2020 1:42 PM Signed June 30, 2020 1:42 PM Attempt to contact letter mailed JAREK Hope MA 07/06/2020 9:09 AM Addendum July 06, 2020 9:06 AM Pateint's mother called the office, pateint is set up with appointment for 08/28 (soonest available) he is almost out of depakote and kera.patient only has 3 tablets left of the depakote. JAREK Hope MD 07/06/2020 10:24 AM Signed Sounds good, approved 3 months and will give further refills at his appointment. Theo Reyna MD 07/06/2020 10:25 AM Signed Addended by: THEO REYNA on: 07/06/2020 10:25 AM Modules accepted: Orders Allergies As of Date: 06/27/2020 Noted Allergy Reaction SHELLFISH DERIVED 05/20/2014 7 - Swelling TRAZODONE 09/09/2014 5 - Intolerance 14 - Other: See Comments Comments: made him feel wierd Date Reviewed: 12/26/2019 Reviewed by: Sully Feliz Ma - Fully Assessed Reason for Visit: Refill Request [94] Cmt: Depakote Refill Request [94] Visit Diagnosis:Seizure disorder (HCC) [G40.909] Order(s):divalproex DR (DEPAKOTE) 250 mg EC tabletTake 3 tablets by mouth twice daily.Disp: 180 tabletRfl: 2 levETIRAcetam (KEPPRA) 750 mg tabletTake 2 tablets by mouth twice daily.Disp: 120 tabletRfl: 2 Prescriptions as of 06/27/2020 Sig: DIVALPROEX 250 MG TABLET,CELSO* Take 3 tablets by mouth twice* LEVETIRACETAM 750 MG TABLET Take 2 tablets by mouth twice* CHOLECALCIFEROL (VITAMIN D3) * Take 1 capsule by mouth one t* Problem List As Of Date 06/27/2020 Noted Resolved Internal hemorrhoids without mention of complic*03/24/2012 Seizure disorder (HCC) [G40.909] 06/04/2014 Anxiety [F41.9] 06/04/2014 Insomnia [G47.00] 08/04/2014 Major depression, recurrent, chronic (HCC) [F33*06/22/2016 Prescriptions ordered this encounter Disp Refills Start End DIVALPROEX 250 MG TABLET,DELAYED REL* 180 * 2 07/06/2020 Route: ORAL Sig: Take 3 tablets by mouth twice daily. LEVETIRACETAM 750 MG TABLET 120 * 2 07/06/2020 Route: ORAL Sig: Take 2 tablets by mouth twice daily. Medications Discontinued During This Encounter Prescriptions - levETIRAcetam (KEPPRA) 750 mg tablet (Discontinued) Take 2 tablets by mouth twice daily - divalproex DR (DEPAKOTE) 250 mg EC tablet (Discontinued) TAKE 3 TABLETS BY MOUTH TWICE DAILY Encounter Status:Closed by THEO REYNA on 06/29/20 [facility] OBSOLETEon 05-15-2020 OBSOLETE Refill (NEAGAK) HARPREET CHRISTIANSON ([id number]) 1990 M Date Time Provider Department 05/15/20 THEO REYNA During your visit today, we recorded the following information about you: Marsha Bowser CMA 05/15/2020 1:41 PM Signed Patient is over due for a follow up. Attempted to contact patient- no answer not able to leave . Pharmacy faxed requesting the following refill Refill(s) Requested: Pending Prescriptions Disp Refills LEVETIRACETAM 750 MG TABLET 120 tablet 0 Sig: Take 2 tablets by mouth twice daily TIMMY: Yes DIVALPROEX 250 MG TABLET,DELAYED RELEASE 180 tablet 0 Sig: TAKE 3 TABLETS BY MOUTH TWICE DAILY TIMMY: Yes ALLERGIES Allergen Reactions - Shellfish Derived Swelling - Trazodone Intolerance, Other: See Comments made him feel wierd (home) [phone] (cell) Last Visit date: Visit date not found Future appointment: Visit date not found The patients preferred pharmacy has been captured for this encounter? yes Request is for script(s) to be escript to pharmacy. SIXTO Anderson MD 05/15/2020 4:45 PM Signed Sent 30 days with message to pharmacy to ask them to tell him to call us. Would you mind calling them to forward this message as well? Really can't keep prescribing if can't get in touch with him. Marsha Bowser CMA 05/18/2020 4:20 PM Signed 05/18/2020 16:20:25 Pharmacy informed. Marsha Bowser CMA Allergies As of Date: 05/15/2020 Noted Allergy Reaction SHELLFISH DERIVED 05/20/2014 7 - Swelling TRAZODONE 09/09/2014 5 - Intolerance 14 - Other: See Comments Comments: made him feel wierd Date Reviewed: 12/26/2019 Reviewed by: Sully Feliz Ma - Fully Assessed Reason for Visit: Refill Request [94] Cmt: Debbie Ho Visit Diagnosis:Seizure disorder (HCC) [G40.909] Order(s):levETIRAcetam (KEPPRA) 750 mg tabletTake 2 tablets by mouth twice dailyDisp: 120 tabletRfl: [address] (DEPAKOTE) 250 mg EC tabletTAKE 3 TABLETS BY MOUTH TWICE DAILYDisp: 180 tabletRfl: 0 Prescriptions as of 05/15/2020 Sig: LEVETIRACETAM 750 MG TABLET Take 2 tablets by mouth twice* DIVALPROEX 250 MG TABLET,CELSO* TAKE 3 TABLETS BY MOUTH TWICE* CHOLECALCIFEROL (VITAMIN D3) * Take 1 capsule by mouth one t* Problem List As Of Date 05/15/2020 Noted Resolved Internal hemorrhoids without mention of complic*03/24/2012 Seizure disorder (HCC) [G40.909] 06/04/2014 Anxiety [F41.9] 06/04/2014 Insomnia [G47.00] 08/04/2014 Major depression, recurrent, chronic (HCC) [F33*06/22/2016 Prescriptions ordered this encounter Disp Refills Start End LEVETIRACETAM 750 MG TABLET 120 * 0 05/15/2020 Cmt: We have been unable to reach the patient. Please ask him to contact our office when he picks up the prescription. We will be unable to continue prescribing if we can't reach him. Sig: Take 2 tablets by mouth twice daily DIVALPROEX 250 MG TABLET,DELAYED REL* 180 * 0 05/15/2020 Cmt: We have been unable to reach the patient. Please ask him to contact our office when he picks up the prescription. We will be unable to continue prescribing if we can't reach him. Route: ORAL Sig: TAKE 3 TABLETS BY MOUTH TWICE DAILY Medications Discontinued During This Encounter Prescriptions - divalproex DR (DEPAKOTE) 250 mg EC tablet (Discontinued) TAKE 3 TABLETS BY MOUTH TWICE DAILY - levETIRAcetam (KEPPRA) 750 mg tablet (Discontinued) Take 2 tablets by mouth twice daily Encounter Status:Closed by THEO REYNA MD on 05/15/20 [facility] CNCOon 04-28-2020 CNCO Letter Text [facility] OBSOLETEon 04-20-2020 OBSOLETE Refill (NEAGAK) HARPREET CHRISTIANSON ([id number]) 1990 M Date Time Provider Department 04/20/20 THEO REYNA During your visit today, we recorded the following information about you: Paige Garza MA 04/20/2020 2:42 PM Signed Pharmacy faxed requesting the following refill Refill(s) Requested: Pending Prescriptions Disp Refills LEVETIRACETAM 750 MG TABLET 120 tablet 0 Sig: Take 2 tablets by mouth twice daily TIMMY: Yes ALLERGIES Allergen Reactions - Shellfish Derived Swelling - Trazodone Intolerance, Other: See Comments made him feel wierd (home) [phone] (cell) Last Visit date: Visit date not found Future appointment: Visit date not found The patients preferred pharmacy has been captured for this encounter? yes Request is for script(s) to be escript to pharmacy. JAREK Hope MD 04/23/2020 11:45 AM Signed See 01/27/20 refill notes - needs to be seen by me or potentially Dr. Trujillo as new consult. Paige Garza MA 04/28/2020 10:41 AM Signed April 28, 2020 10:40 AM Number cannot go through, attempted to call 2 times. No other number listed for patient or mother. Attempt to contact letter mailed. Paige Garza MA Allergies As of Date: 04/20/2020 Noted Allergy Reaction SHELLFISH DERIVED 05/20/2014 7 - Swelling TRAZODONE 09/09/2014 5 - Intolerance 14 - Other: See Comments Comments: made him feel wierd Date Reviewed: 12/26/2019 Reviewed by: Sully Feliz Ma - Fully Assessed Reason for Visit: Refill Request [94] Visit Diagnosis:Seizure disorder (HCC) [G40.909] Order(s):levETIRAcetam (KEPPRA) 750 mg tabletTake 2 tablets by mouth twice dailyDisp: 120 tabletRfl: 0 Prescriptions as of 04/20/2020 Sig: LEVETIRACETAM 750 MG TABLET Take 2 tablets by mouth twice* DIVALPROEX 250 MG TABLET,CELSO* TAKE 3 TABLETS BY MOUTH TWICE* CHOLECALCIFEROL (VITAMIN D3) * Take 1 capsule by mouth one t* Problem List As Of Date 04/20/2020 Noted Resolved Internal hemorrhoids without mention of complic*03/24/2012 Seizure disorder (HCC) [G40.909] 06/04/2014 More... Anxiety [F41.9] 06/04/2014 More... Insomnia [G47.00] 08/04/2014 More... Major depression, recurrent, chronic (HCC) [F33*06/22/2016 Prescriptions ordered this encounter Disp Refills Start End LEVETIRACETAM 750 MG TABLET 120 * 0 04/23/2020 Sig: Take 2 tablets by mouth twice daily Medications Discontinued During This Encounter Prescriptions - levETIRAcetam (KEPPRA) 750 mg tablet (Discontinued) Take 2 tablets by mouth twice daily Encounter Status:Closed by THEO REYNA MD on 04/23/20 [facility] OBSOLETEon 01-27-2020 OBSOLETE Refill (ANAAGAK) HARPREET CHRISTIANSON ([id number]) 1990 M Date Time Provider Department 01/27/20 THEO REYNA During your visit today, we recorded the following information about you: Marsha Bowser CMA 01/27/2020 2:26 PM Signed Pharmacy faxed requesting the following refill Refill(s) Requested: Pending Prescriptions Disp Refills LEVETIRACETAM 750 MG TABLET 120 tablet 0 Sig: Take 2 tablets by mouth twice daily TIMMY: Yes DIVALPROEX 250 MG TABLET,DELAYED RELEASE 180 tablet 0 Sig: TAKE 3 TABLETS BY MOUTH TWICE DAILY TIMMY: Yes ALLERGIES Allergen Reactions - Shellfish Derived Swelling - Trazodone Intolerance, Other: See Comments made him feel wierd (home) [phone] (cell) Last Visit date: 09/23/2019 Future appointment: Visit date not found The patients preferred pharmacy has been captured for this encounter? yes Request is for script(s) to be escript to pharmacy. SIXTO Anderson MD 01/28/2020 10:56 AM Signed Last appointment 05/2019. Needs to be seen. He would also be appropriate to be seen in [facility] since he likely needs to have an EMU admission, would be appropriate for consult with Dr. Trujillo. Marsha Bowser CMA 01/28/2020 3:34 PM Signed 01/28/2020 15:34:04 Left message for patient to call the office back. SIXTO Anderson CMA 02/06/2020 11:02 AM Signed February 06, 2020 11:00 AM Left message #2. I left Dr. Trujillo's # for him to call and schedule an appointment with him. Marsha Bowser CMA Allergies As of Date: 01/27/2020 Noted Allergy Reaction SHELLFISH DERIVED 05/20/2014 7 - Swelling TRAZODONE 09/09/2014 5 - Intolerance 14 - Other: See Comments Comments: made him feel wierd Date Reviewed: 12/26/2019 Reviewed by: Sully Feliz Ma - Fully Assessed Reason for Visit: Refill Request [94] Cmt: Vic Lewis Reason For Visit History Recorded Visit Diagnosis:Seizure disorder (HCC) [G40.909] Order(s):levETIRAcetam (KEPPRA) 750 mg tabletTake 2 tablets by mouth twice dailyDisp: 120 tabletRfl: [address] (DEPAKOTE) 250 mg EC tabletTAKE 3 TABLETS BY MOUTH TWICE DAILYDisp: 180 tabletRfl: 1 Prescriptions as of 01/27/2020 Sig: LEVETIRACETAM 750 MG TABLET Take 2 tablets by mouth twice* DIVALPROEX 250 MG TABLET,CELSO* TAKE 3 TABLETS BY MOUTH TWICE* CHOLECALCIFEROL (VITAMIN D3) * Take 1 capsule by mouth one t* Problem List As Of Date 01/27/2020 Noted Resolved Internal hemorrhoids without mention of complic*03/24/2012 Seizure disorder (HCC) [G40.909] 06/04/2014 More... Anxiety [F41.9] 06/04/2014 More... Insomnia [G47.00] 08/04/2014 More... Major depression, recurrent, chronic (HCC) [F33*06/22/2016 Prescriptions ordered this encounter Disp Refills Start End LEVETIRACETAM 750 MG TABLET 120 * 1 01/28/2020 Sig: Take 2 tablets by mouth twice daily DIVALPROEX 250 MG TABLET,DELAYED REL* 180 * 1 01/28/2020 Route: ORAL Sig: TAKE 3 TABLETS BY MOUTH TWICE DAILY Medications Discontinued During This Encounter Prescriptions - levETIRAcetam (KEPPRA) 750 mg tablet (Discontinued) Take 2 tablets by mouth twice daily. No further refills until seen in office - divalproex DR (DEPAKOTE) 250 mg EC tablet (Discontinued) Take 3 tablets by mouth twice daily. Encounter Status:Closed by THEO REYNA MD on 01/28/20 [facility] Vital Signs Date Time Vital Sign Value Performing Clinician Faci [facility] 11-24-2023 07:48-0400 Body mass index (BMI) [Ratio] 31.6 kg/m2 Patel Hernandez MD Work Phone: [facility] 11-24-2023 07:48-0400 Body temperature 98.8 [degF] Patel Hernandez MD Work Phone: [facility] 11-24-2023 07:48-0400 Body weight 99.9 kg Patel Hernandez MD Work Phone: [facility] 11-24-2023 07:48-0400 Diastolic blood pressure 91 mm[Hg] Patel Hernandez MD Work Phone: [facility] 11-24-2023 07:48-0400 Heart rate 97 /min Patel Hernandez MD Work Phone: [facility] 11-24-2023 07:48-0400 Respiratory rate 18 /min Patel Hernandez MD Work Phone: [facility] 11-24-2023 07:48-0400 SaO2% (BldA) [Mass fraction] 98 % Patel Hernandez MD Work Phone: [facility] 11-24-2023 07:48-0400 Systolic blood pressure 146 mm[Hg] Patel Hernandez MD Work Phone: [facility] Encounters Encounter Date Encounter Type Care Provider Facility Start: 07-02-2024 End: 07-02-2024 ambulatory [facility] Facility:[facility] Start: 03-09-2024 End: 03-10-2024 Telephone encounter Theo Reyna MD Work Phone: Neurology Comment on above: Appointment Start: 03-08-2024 End: 03-08-2024 Distance Health Theo Reyna MD Work Phone: Neurology Comment on above: Seizure disorder (HC C) (Primary Dx); Encounter for therapeutic drug level monitoring Start: 01-08-2024 End: 01-09-2024 Telephone encounter Theo Reyna MD Work Phone: Neurology Start: 11-24-2023 End: 11-24-2023 ambulatory IRON [facility] Facility:[facility] Start: 11-24-2023 End: 11-24-2023 Office outpatient visit 25 minutes Patel Hernandez MD [facility] Phone[facility] Comment on above: Pain, dental (Primar y Dx) Start: 04-01-2022 Telephone encounter Theo bruno MD Work Phone: [facility] Comment on above: Medication Problem Start: 01-25-2022 Telephone encounter Theo bruno MD Work Phone: Neurology Comment on above: Patient Question Start: 12-23-2021 Telephone encounter Theo bruno MD Work Phone: Neurology Comment on above: Patient Question Start: 08-09-2021 Telephone encounter Theo bruno MD Work Phone: Neurology Comment on above: Medication Problem Start: 08-02-2021 Refill Theo Reyna MD Work Phone: Neurology Comment on above: Refill Request Start: 09-19-2020 End: 09-19-2020 Emergency department patient visit Curly Mtz Facility:[facility] Plan of Treatment Date Care Activity Detail Author Start: 08-30-2024 End: 08-30-2024 Patient encounter procedure 08/30/2024 3:00 PM EDT Office Visit Neurology [address] [place] [phone] Theo Reyna MD [address] [place], [place] [phone] six month follow up Neurology Comment on above: six month follow up Start: 03-08-2024 End: 06-07-2024 CBC W Auto Differential panel - Blood COMPLETE BLOOD COUNT AND DIFFERENTIAL Lab Routine Seizure disorder (HCC) Encounter for therapeutic drug level monitoring Expected: 03/08/2024, Expires: 06/07/2024 [facility] Comment on above: Expected: 03/08/2024 , Expires: 06/07/2024 Start: 03-08-2024 End: 06-07-2024 Comprehensive metabolic 2000 panel - Serum or Plasma COMPREHENSIVE METABOLIC PANEL Lab Routine Seizure disorder (HCC) Encounter for therapeutic drug level monitoring Expected: 03/08/2024, Expires: 06/07/2024 [facility] Comment on above: Expected: 03/08/2024 , Expires: 06/07/2024 Start: 03-08-2024 End: 06-07-2024 Valproate [Mass/volume] in Serum or Plasma VALPROIC ACID / DEPAKENE Lab Routine Seizure disorder (HCC) Encounter for therapeutic drug level monitoring Expected: 03/08/2024, Expires: 06/07/2024 [facility] Comment on above: Expected: 03/08/2024 , Expires: 06/07/2024 Start: 02-28-2024 End: 02-28-2024 Patient encounter procedure 02/28/2024 11:00 AM EST Office Visit Neurology [address] [place] [phone] Theo Reyna MD [address] [place], [place] [phone] med follow up Neurology Comment on above: med follow up Start: 10-15-2023 Covid-19 Vaccine ( season) Covid-19 Vaccine ( season) [facility] Start: 10-15-2023 Influenza vaccination Influenza Vacc ine (#1) [facility] Start: 10-14-2021 Influenza vaccination C [facility] Start: 02-26-2020 PNEUMOCOCCAL (2 - PCV) PNEUMOCOCCAL (2 - PCV) [facility] Start: 02-26-2020 Pneumococcal vaccination Pneum ococcal Vaccine (2 of 2 - PCV) [facility] Start: 03-23-2015 Urine microalbumin profile [facility] Start: 2008 Urine microalbumin profile DTAP,TDAP,TD (1 - Tdap) [facility] Start: 05-11-2007 HEPATITIS C SCREENING HEPATITIS C [facility] Start: 05-11-2007 Hepatitis C screening Hepatitis C [facility] Start: 05-11-2007 HIV SCREENING HIV SCREENING [facility] Start: 05-11-2007 HIV screening HIV Screening [facility] Start: 03-05-2001 HEPATITIS B (3 of 3 - 3-dose series) HEPATITIS B (3 of 3 - 3-dose series) [facility] Start: 03-05-2001 Hepatitis B Vaccine (3 of 3 - 3-dose series) Hepatitis B Vaccine (3 of 3 - 3-dose series) [facility] Start: 1994 COVID-19 VACCINE (#1) COVID-19 VACCI NE (#1) [facility] Start: 1989 COVID-19 VACCINE (#1) COVID-19 VACCI NE (#1) [facility] Start: 1989 HEPATITIS B (1 of 3 - 3-dose series) HEPATITIS B (1 of 3 - 3-dose series) [facility] End: 03-08-2025 EPIL EEG ROUTINE EPIL EEG ROUTINE NEUROLOGY Routine Seizure disorder (HCC) 1 Occurrences starting 03/08/2024 until 03/08/2025 [facility] Work Phone: Comment on above: 1 Occurrences starti ng 03/08/2024 until 03/08/20[facility] Immun[facility] Immunization Date Immunization Notes Care Provider Fa cility 02-25-2019 pneumococcal polysaccharide vaccine, 23 valsantos Reyna MD Work Phone: [facility] 03-23-2005 measles, mumps and rubella virus vaccine Theo Reyna MD Work Phone: [facility] 03-23-2005 tetanus toxoid, redu willy diphtheria toxoid, and acellular pertussis vaccine, adsorbed Theo Reyna MD Work Phone: [facility] 12-25-2000 hepatitis B vaccine, pediatric or pediatric/adolescent dosage Theo Reyna MD Work Phone: [facility] 12-25-2000 hepatitis B vaccine, unspecified formulation Theo Reyna MD Work Phone: [facility] 11-13-2000 hepatitis B vaccine, pediatric or pediatric/adolescent dosage Theo Reyna MD Work Phone: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 mcg (50,000 unit) cap capsule Take 1 capsule by mouth one time a week. (Patient not taking: Reported on 11/24/2023) ALLERGIES: ALLERGIES Allergen Reactions Shellfish Derived Swelling Trazodone Intolerance, Other: See Comments made him feel wierd VITALS: BP 146/91 Pulse 97 Temp 37.1 ?C (98.8 ?F) Resp 18 Wt 99.9 kg (220 lb 3.8 oz) SpO2 98% BMI 31.60 kg/m? PE: Gen: Mildly ill-appearing, holding left jaw and uncomfortable Eyes: PERRL, EOMI, sclera clear Ears: Canals clear. TMs without erythema, bulge, or effusion Sinuses: non-tender frontal, non-tender maxillary Mouth/throat: MMM, mild pharyngeal erythema without exudate, small right tonsil stone. Left upper 2nd molar 1/3 missing, 3rd molar absent Neck: Supple, no thyromegaly, nontender, no lymphadenopathy Heart: regular rate and rhythm, no murmurs Lungs: clear to auscultation ASSESSMENT/PLAN: 1. Pain, dental - ICD9: 525.9, ICD10: K08.89 Continue augmentin. Resume analgesia. Scheduled combination ibuprofen and acetaminophen every 6 hours at least 3 times a day. - IBUPROFEN 600 MG TABLET - ACETAMINOPHEN 325 MG TABLET Sore throat and headache may be related to acute viral illness. Streptococcal pharyngitis ruled out by present Augmentin use. Patel Hernandez MD [facility] 11-24-2023 History of Presen t illness Narrative Patient presents with: Dental Problem: L side tooth infection x1 month, currently on augmentin HPI: Dental pain: Duration: 1 month, went to dentist 2 days ago and felt better after starting antibiotic but feeling bad again over night Location: left upper molar, general headache Character: aching and throbbing Relieving: unable to sleep last night Pain relievers: had used ibuprofen but not currently, using salt water gargle for sore throat Associated: chills, nausea, sore throat, headache Pertinent negatives: Denies purulent drainage, cough, nasal congestion, rhinorrhea, vomiting, diarrhea MEDICATIONS: amoxicillin-clavulanate potassium (AUGMENTIN) 875-125 mg per tablet TAKE 1 TABLET BY MOUTH TWICE DAILY UNTIL GONE divalproex DR (DEPAKOTE) 250 mg EC tablet Take 3 tablets by mouth two times a day. levETIRAcetam (KEPPRA) 750 mg tablet Take 2 tablets by mouth two times a day. cholecalciferol, Vitamin D3, (VITAMIN D3) 1,250 mcg (50,000 unit) cap capsule Take 1 capsule by mouth one time a week. (Patient not taking: Reported on 11/24/2023) ALLERGIES: ALLERGIES Allergen Reactions Shellfish Derived Swelling Trazodone Intolerance, Other: See Comments made him feel wierd VITALS: BP 146/91 Pulse 97 Temp 37.1 C (98.8 F) Resp 18 Wt 99.9 kg (220 lb 3.8 oz) SpO2 98% BMI 31.60 kg/m PE: Gen: Mildly ill-appearing, holding left jaw and uncomfortable Eyes: PERRL, EOMI, sclera clear Ears: Canals clear. TMs without erythema, bulge, or effusion Sinuses: non-tender frontal, non-tender maxillary Mouth/throat: MMM, mild pharyngeal erythema without exudate, small right tonsil stone. Left upper 2nd molar 1/3 missing, 3rd molar absent Neck: Supple, no thyromegaly, nontender, no lymphadenopathy Heart: regular rate and rhythm, no murmurs Lungs: clear to auscultation ASSESSMENT/PLAN: 1. Pain, dental - ICD9: 525.9, ICD10: K08.89 Continue augmentin. Resume analgesia. Scheduled combination ibuprofen and acetaminophen every 6 hours at least 3 times a day. - IBUPROFEN 600 MG TABLET - ACETAMINOPHEN 325 MG TABLET Sore throat and headache may be related to acute viral illness. Streptococcal pharyngitis ruled out by present Augmentin use. Patel Hernandez MD documented in this encounter [facility] 04-01-2022 Miscellaneous Notes Patient scheduled for virtual visit today 3:30. Mom called and depakote and Keppra medication refills, please advise. Requesting [facility] pharmacy. Thank you, Sondra Atkinson documented in this encounter [facility] 01-25-2022 Miscellaneous Notes Patients mom called in requesting a refill on the following medication: divalproex DR (DEPAKOTE) 250 mg EC tablet 08/09/21 02/05/22 Theo Reyna MD TAKE 3 TABLETS BY MOUTH TWICE DAILY documented in this encounter [facility] 12-23-2021 Miscellaneous Notes Spoke with patients mother, made virtual visit for 03/14/2022. Mother expresses concern related to 90 day refill not making it until visit. This nurse explained that the 90 day supply should last into March. Addended by: THEO REYNA on: 12/23/2021 03:58 PM Modules accepted: Orders Sent 90 days, can you have them make a follow up? Has been a year since seen. Addended by: JAYNE DOWNING on: 12/23/2021 03:32 PM Modules accepted: Orders Patient requesting refills as follows via Phone: JOSELITO: 12/11/2020 NOV: not scheduled Requested Prescriptions Pending Prescriptions Disp Refills levETIRAcetam (KEPPRA) 750 mg tablet 360 tablet 0 Sig: Take 2 tablets by mouth twice daily. Please review and advise. Jayne Downing LPN Patients mom just called in stating he needs a refill on the following medication: levETIRAcetam (KEPPRA) 750 mg tablet 08/05/21 02/01/22 Theo Reyna MD Take 2 tablets by mouth twice daily Please send to [facility] pharmacy in [place], thank you. documented in this encounter [facility] 08-09-2021 Miscellaneous Notes Filled in prescription encounter Addended by: NAY CHICAS on: 08/09/2021 02:14 PM Modules accepted: Orders Patients keppra is at pharmacy waiting to be picked up. Pharmacy verified in [facility] Patient has been identified by name and date of : Yes Patient aware RX will be sent to pharmacy. No need to notify patient. Patient phones for refill(s): Pending Prescriptions Disp Refills DIVALPROEX 250 MG TABLET,DELAYED RELEASE 540 tablet 1 Sig: Take 3 tablets by mouth twice daily. TIMMY: No Date of last office visit : 12/11/2020 Date of next office visit : Last 2 Encounter Wt Readings: Date: Wt: 12/26/2019 80.7 kg (178 lb) 02/25/2019 84 kg (185 lb 1.9 oz) Not applicable Please advise. Nay Chicas LPN Mom Hanna called requesting refills for Harpreet for: Keppra and Depakote. I did see he had a refill for Keppra sent to [facility] on 08/02/21 and she was unsure if that prescription was filled or not, if they still had it, and if they could or could not fill the ordered quantity. I said I would send this message on to Dr. Reyna's team. Thank you, Sondra Atkinson documented in this encounter [facility] 08-04-2021 Miscellaneous Notes Pharmacy requesting refills as follows: Last O/V: 12/11/20 Next O/V : NA Pending Prescriptions Disp Refills LEVETIRACETAM 750 MG TABLET 360 tablet 0 Sig: Take 2 tablets by mouth twice daily TIMMY: Yes Please review and advise. Oscar Elliott LPN documented in this encounter [facility] Evaluation note Diagnosis Seizure disorder (HCC) Unspecified epilepsy without mention of intractable epilepsy [facility] Diagnosis Seizure disorder (HCC) Unspecified epilepsy without mention of intractable epilepsy [facility] Diagnosis Seizure disorder (HCC) Unspecified epilepsy without mention of intractable epilepsy [facility] Diagnosis Annual physical exam- Primary Routine general medical examination at a health care facility Seizure disorder (HCC) Unspecified epilepsy without mention of intractable epilepsy Anxiety Anxiety state, unspecified Need for prophylactic vaccination with combined epxungfevx-dxdbmlt-asldmsylz (DTP) vaccine Seizure disorder (HCC)- Primary Unspecified epilepsy without mention of intractable epilepsy Anxiety Anxiety state, unspecified Insomnia Insomnia, unspecified Insomnia- Primary Insomnia, unspecified Seizure disorder (HCC) Unspecified epilepsy without mention of intractable epilepsy Vitamin D deficiency- Primary Unspecified vitamin D deficiency Seizure disorder (HCC) Unspecified epilepsy without mention of intractable epilepsy Anxiety Anxiety state, unspecified Major depression, recurrent, chronic (HCC) Major depressive disorder, recurrent episode, unspecified Insomnia, unspecified type Herpes labialis Herpes simplex without mention of complication Pain, dental- Primary Unspecified disorder of the teeth and supporting structures [facility] Diagnosis Annual physical exam- Primary Routine general medical examination at a health care facility Seizure disorder (HCC) Unspecified epilepsy without mention of intractable epilepsy Anxiety Anxiety state, unspecified Need for prophylactic vaccination with combined suuutchail-tzuecrl-bxwxruetk (DTP) vaccine Seizure disorder (HCC)- Primary Unspecified epilepsy without mention of intractable epilepsy Anxiety Anxiety state, unspecified Insomnia Insomnia, unspecified Insomnia- Primary Insomnia, unspecified Seizure disorder (HCC) Unspecified epilepsy without mention of intractable epilepsy Vitamin D deficiency- Primary Unspecified vitamin D deficiency Seizure disorder (HCC) Unspecified epilepsy without mention of intractable epilepsy Anxiety Anxiety state, unspecified Major depression, recurrent, chronic (HCC) Major depressive disorder, recurrent episode, unspecified Insomnia, unspecified type Herpes labialis Herpes simplex without mention of complication Seizure disorder (HCC)- Primary Unspecified epilepsy without mention of intractable epilepsy Encounter for therapeutic drug level monitoring Encounter for therapeutic drug monitoring [facility] Outpatient Procedure (Routine) - New Request Specialty Diagnoses / Procedures Referred By Ayah castillo [facility] Diagnoses Seizure disorder (HCC) Procedures EPIL EEG ROUTINE ELECTROENCEPHALOGRAM REC COMA/SLEEP ONLY Theo Reyna MD [address] [place] [address] [place] [address] [address] Referral ID Status Reason Start Date Expiration Date Visits Requested Visits Authorized [id number] New Request Auto-Generat ed Referral 03/08/2024 03/08/2025 1 1 [facility] Summary Purpose Family History No Family History Records FoundNo Family History Records FoundNo Family History Records Found Advance Directives No Advanced Directives Records FoundNo Advanced Directives Records FoundNo Advanced Directives Records Found Additional Source Comments (unrecognized sect ion and content) No Status Records FoundNo Status Records FoundNo Status Records Found INFORMATION SOURCE (unrecogn ized section and content) DATE CREATED AUTHOR 12/11/2020 [facility] DATE CREATED AUTHOR AUTHOR'S ORGANIZ ATION 12/16/2021 [facility] DATE CREATED AUTHOR AUTHOR'S ORGANIZ ATION 07/03/2024 [facility] Source Comments (unrecognize d section and content) In the event this informatio n is protected by the Federal Confidentiality of Alcohol and Drug Abuse Patient Records regulations: The Federal rules restrict any use of the information to criminally investigate or prosecute any alcohol or drug abuse patient.[facility] the event this information is protected by the Federal Confidentiality of Alcohol and Drug Abuse Patient Records regulations: The Federal rules restrict any use of the information to criminally investigate or prosecute any alcohol or drug abuse patient.[facility] the event this information is protected by the Federal Confidentiality of Alcohol and Drug Abuse Patient Records regulations: The Federal rules restrict any use of the information to criminally investigate or prosecute any alcohol or drug abuse patient.[facility] the event this information is protected by the Federal Confidentiality of Alcohol and Drug Abuse Patient Records regulations: The Federal rules restrict any use of the information to criminally investigate or prosecute any alcohol or drug abuse patient.[facility] the event this information is protected by the Federal Confidentiality of Alcohol and Drug Abuse Patient Records regulations: The Federal rules restrict any use of the information to criminally investigate or prosecute any alcohol or drug abuse patient.[facility] the event this information is protected by the Federal Confidentiality of Alcohol and Drug Abuse Patient Records regulations: The Federal rules restrict any use of the information to criminally investigate or prosecute any alcohol or drug abuse patient.[facility] the event this information is protected by the Federal Confidentiality of Alcohol and Drug Abuse Patient Records regulations: The Federal rules restrict any use of the information to criminally investigate or prosecute any alcohol or drug abuse patient.[facility] the event this information is protected by the Federal Confidentiality of Alcohol and Drug Abuse Patient Records regulations: The Federal rules restrict any use of the information to criminally investigate or prosecute any alcohol or drug abuse patient.[facility] the event this information is protected by the Federal Confidentiality of Alcohol and Drug Abuse Patient Records regulations: The Federal rules restrict any use of the information to criminally investigate or prosecute any alcohol or drug abuse patient.[facility] Reason for Visit (unrecogniz ed section and content) Reason Comments Refill Request Reason Comments Medication Problem Reason Comments Patient Question Reason Comments Dental Problem L side tooth infecti on x1 month, currently on augmentin Reason Comments Follow Up Reason Comments Appointment Care Teams (unrecognized sec tion and content) Sheet Rock Taper Relationship Specialty Start Date End Date Iron Mtz MD [address] [place], [place] [id number] PCP - General Family Practice 02/25/19 Sheet Rock Taper Relationship Specialty Start Date End Date Iron Mtz MD [address] [place], [place] [id number] PCP - General Family Practice 02/25/19 Sheet Rock Taper Relationship Specialty Start Date End Date Iron Mtz MD [address] [place], [place] [id number] PCP - General Family Medicine 02/25/19 Sheet Rock Taper Relationship Specialty Start Date End Date Iron Mtz MD [address] [place], [place] [id number] PCP - General Family Medicine 02/25/19 Sheet Rock Taper Relationship Specialty Start Date End Date Iron Mtz MD [address] [place] [address] PCP - [facility] Family Medicine 02/25/19 Sheet Rock Taper Relationship Specialty Start Date End Date Iron Mtz MD [address] [place] [address] PCP - [facility] Medicine 02/25/19 Sheet Rock Taper Relationship Specialty Start Date End Date Iron Mtz MD [address] [place] [address] PCP - [facility] Medicine 02/25/19 Sheet Rock Taper Relationship Specialty Start Date End Date Iron Mtz MD [address] [place] [address] PCP - [facility] Medicine 02/25/19 PodlogarMarcie APRN.DIRECTOR OF CLINICAL APPLICATIONS [address] [place] [address] [facility] 01/20/24 Sheet Rock Taper Relationship Specialty Start Date End Date Iron Mtz MD [address] [place] [address] PCP - General [facility] Medicine 02/25/19 PodlogarMarcie APRN.DIRECTOR OF CLINICAL APPLICATIONS [address] [place] [address] [facility] 01/20/24 FOR RECORDS PERTAINING TO PATIENTS WHO ARE OR HAVE BEEN ENROLLED IN A CHEMICAL DEPENDENCY/SUBSTANCEABUSE PROGRAM, SOME INFORMATION MAY BE OMITTED. This clinical summary was aggregated from multiple sources. Caution should be exercised in using it in the provision of clinical care. This summary normalizes information from multiple sources, and as a consequence, information in this document may materially change the coding, format and clinical context of patient data. In addition, data may be omitted in some cases. CLINICAL DECISIONS SHOULD BE BASED ON THE PRIMARY CLINICAL RECORDS. [facility]. provides no warranty or guarantee of the accuracy or completeness of information in this document.
[2024-12-09 23:54] LABS: Differential Indicated SCAN CRITERIA MET
[2024-12-09 23:58] LABS: Anion Gap 9 (5-15); BUN 10 mg/dL (4-19); BUN/Creat Ratio 13.4 RATIO (10-20); CRP 23.70 mg/L (0.0-3.0); Calcium,Total 9.8 mg/dL (7.6-11.0); Carbon Dioxide 28.9 mmol/L (21.0-32.0); Chloride 100 mmol/L (98-108); Estimated Creatinine Clearance 144.49 ml/min (50-250); Glucose 120 mg/dL (70-99); Potassium 4.2 mmol/L (3.3-5.1); Procalcitonin 0.02 ng/mL (<=0.10)
[2024-12-10 00:04] LABS: Reactive Lymphocyte RARE
[2024-12-10 00:05] LABS: Differential Comment SCANNED
[2024-12-10] MEDS: Lidocaine 2% /Epi 1:100 (20ml) 20 ML VIAL INFILT (01:18)
--- NOTE | 2024-12-10 01:54 | EX.ED.DYSGE1 ---
HPI History of Present Illness Chief Complaint: Lower Extremity Injury Informant: patient Narrative Narrative: Patient is a 34-year-old male with past medical history of seizure disorder. He states that 5 to 7 days ago he was working on his hands and knees on tile. He states in the process he sustained small abrasions/scrapes to both knees. However over the last few days his right knee has become swollen and warm and painful. He denies any history immunosuppression. He states there has been no associated fevers with this. He states that he is still able to ambulate is just painful to do so. He has concern for developing infection based on his symptoms and therefore comes in for evaluation [facility] Medical History Seizure Home Medications ?Medication ?Instructions ?Recorded ?Last Taken ?Type levetiracetam 1,000 mg tablet 1,500 mg PO BID 11/27/12 11/23/15 History (Keppra) divalproex 250 mg tablet,delayed 750 mg (3 x 250 mg) PO BIDCM ##180 05/06/13 11/23/15 Rx release amoxicillin 875 mg-potassium 1 tab PO BID 10 days #20 tabs 12/10/24 Unknown Rx clavulanate 125 mg tablet oxycodone-acetaminophen 5 mg-325 1 tab PO Q6H PRN pain 3 days #12 12/10/24 Unknown Rx mg tablet (Percocet) tabs Allergy/AdvReac Type Severity Reaction Status Date / Time shrimp Allergy Swelling Verified 12/09/24 22:57 Family History no significant family his Social History Smoking Status: Current every day smoker tobacco type: cigarettes ROS ROS ED Constitutional Constitutional ED: Denies chills or fever(s) ENT ENT ED: Denies sore throat Cardiovascular Cardiovascular: Denies chest pain, palpitations or racing heartbeat Respiratory/Chest Respiratory/Chest: Denies cough or dyspnea Gastrointestinal Gastrointestinal: Denies abdominal pain, diarrhea, nausea or vomiting Musculoskeletal Musculoskeletal: Reports other Details: Positive right knee pain Integumentary Reports abscess Neurologic Neurologic: Denies headache(s) Hematologic/Lymphatic Hematologic/Lymphatic: Denies easy bleeding or easy bruising EXAM Physical Exam Const Vital Signs: 12/09/24 22:56 12/10/24 02:05 Temperature 98.1 F 98.1 F Temperature Source Oral Pulse Rate 110 H 88 Respiratory Rate 19 H 16 Blood Pressure 156/100 H 121/92 H Blood Pressure Mean 118 101 Pulse Ox 100 96 Oxygen Delivery Method Room Air Positive well nourished and well developed General Appearance ED: well developed HEENT HEENT Narrative: Normocephalic atraumatic Eyes PERRL and EOMs intact bilaterally General Eye ED: Negative for scleral icterus Neck supple Resp normal respiratory effort and clear to auscultation bilaterally Cardio regular rate and regular rhythm Extremity Extremity Narrative: Right lower extremity is neurovascularly intact; patient has an abrasion to the anterior aspect of the right knee over top the lower aspect of the patella/tibial tuberosity. Surrounding the abrasion by roughly 2 cm x 2 cm is an area of erythema warmth and fluctuance concerning for abscess. Extending out along the anterior aspect of the right knee and proximal third of the tibia is asymmetric erythema and warmth concerning for cellulitis. No lymphangitic streaking noted. No active discharge present. No crepitance noted Negative Homans' sign bilaterally Compartments are soft and compressible going against compartment syndrome Neuro oriented x3, CN's II-XII intact bilaterally and no sensory deficits noted Sensorium / Orientation: alert Psych mental status grossly normal Skin Skin Narrative: Soft tissue changes to the anterior aspect of the right knee consistent with abscess and surrounding cellulitis MDM MDM MDM Narrative Medical decision making narrative: Patient arrived to the ER hypertensive and afebrile. He denied any history of immunosuppression. He reported unilateral right knee pain after working on his hands and knees. Differential diagnosis is for abscess with surrounding cellulitis. There is low concern for osteomyelitis or septic joint based on his physical exam and past medical history. In order to assess for free air that could be associated with a gas producing infection versus fracture versus retained foreign body and x-ray was ordered. This revealed soft tissue swelling without signs of free air fracture or osteomyelitis or retained foreign body. Lab work showed elevated white blood cell count of 13.4 consistent with infection however his lactic acid is less than 1 and his procalcitonin is 0.02 which would go against sepsis/systemic infection. Therefore at this time as history and exam indicate patient has an abscess with surrounding cellulitis but no signs of osteomyelitis or septic joint or sepsis I do not feel the need for admission. The patient had the abscess incised and drained as documented below and will be discharged home on outpatient antibiotic. The area was cleaned with chlorhexidine. It was then anesthetized using 8 mL of 2% lidocaine with epinephrine and local fashion. A #11 blade was used to make a 1 cm incision over top the area of fluctuance above the right knee. A moderate amount of purulent material was expressed. Loculations were dissected with a needle mckeon. The wound was copiously irrigated with normal saline. Patient tolerated the procedure well without complication. History & Record Review Discussion w/independent historian: Patient Lab Data Attestation: I reviewed the patient's lab results. Labs: Laboratory Results - last 24 hr 12/09/24 23:17 WBC 13.4 H RBC 4.82 Hgb 15.9 Hct 47.5 MCV 98.5 H MCH 33.0 H MCHC 33.5 RDW Std Deviation 43.9 RDW Coeff of Ricky 12.0 Plt Count 358 MPV 10.4 Immature Gran % (Auto) 0.500 Neut % (Auto) 67.6 Lymph % (Auto) 17.6 L Jennings % (Auto) 13.2 H Eos % (Auto) 0.6 Baso % (Auto) 0.5 Absolute Neuts (auto) 9.1 H Absolute Lymphs (auto) 2.36 Nucleated RBC % 0 Differential Comment SCANNED Reactive Lymphocytes RARE ESR 21 H Sodium 138 Potassium 4.2 Chloride 100 Carbon Dioxide 28.9 Anion Gap 9 BUN 10 Creatinine 0.76 Estim Creat Clear Calc 144.49 Est GFR (MDRD) Non-Af 120 BUN/Creatinine Ratio 13.4 Glucose 120 H Lactic Acid < 1.0 Calcium 9.8 C-React Prot Ext Range 23.70 H Procalcitonin 0.02 Radiography Diagnostic Testing: Clinical Impression(s) from Imaging Studies Knee X-Ray 12/09/24 23:27 IMPRESSION: No acute fracture or dislocation. Localized soft tissue swelling in the infrapatellar soft tissues overlying the patellar tendon at the tibial tubercle insertion; nonspecific. Reading Location: [facility] Right knee x-ray as interpreted by the emergency medicine physician reveals no acute fracture or dislocation or joint effusion but does show soft tissue swelling in the infrapatellar region Discharge Plan Triage Chief Complaint: Lower Extremity Injury ED Provider: Andes,Petr Dx/Rx/DC Orders Clinical Impression: Abscess of right knee, Cellulitis of right knee, Seizure disorder Instructions: Cellulitis Dc, ED Abscess Incision And Drainage Prescriptions: New amoxicillin-pot clavulanate 875-125 mg tablet 1 tab PO BID 10 Days Qty: 20 0RF oxycodone-acetaminophen [Percocet] 5-325 mg tablet 1 tab PO Q6H PRN (Reason: pain) 3 Days Qty: 12 0RF No Action levetiracetam [Keppra] 1,000 MG tablet 1,500 mg PO BID Patient Comments: SEIZURES divalproex 250 MG tablet 750 mg PO BIDCM Qty: 180 0RF Patient Comments: seizures Rx Instructions: 3 tablets twice daily for a total of 750 mg twice daily Primary Care Provider: Curly Mtz Referrals: Curly Mtz MD [Primary Care Provider, [facility]] Activity Restrictions/Additional Instructions: Please take the antibiotic as directed to help resolve your infection. It would typically take 48 to 72 hours to notice improvement. If you develop streaking significant worsening of the redness increasing pain or fever please return to the ER for repeat evaluation. Print Language: Chilean Disposition Disposition: Home, Self Care Discharge Date/Time: 12/10/24 02:06
[2024-12-10 02:05] VITALS: BP 121/92; PULSE 88; RESP 16; TEMP 36.7; O2SAT 96
== END 2024-12-10 02:06 | disposition home or self-care (01) ==
PROVIDERS: Emergency Provider Emergency Medicine; PCP Family Medicine; Visit Provider Emergency Medicine
DX: L02.415 Cutaneous abscess of right lower limb (principal); G40.909 Epilepsy, unspecified, not intractable, without status epilepticus; L03.115 Cellulitis of right lower limb; M25.561 Pain in right knee; F17.210 Nicotine dependence, cigarettes, uncomplicated
CPT/HCPCS: 10061; 73564; 80048; 83605; 84145; 85025; 85652; 86140; 96365; 96366; 99282; A4216